=== PATIENT | male | born 1995 | race American Indian/Alaskan Native ===

== ENCOUNTER 2019-03-29 11:00 | Emergency (ER) | payer SELFPAY | END 2019-03-29 11:45 | disposition left against medical advice (07) | LOC: ED 11:00 | DX: Z00.8 Encounter for other general examination (principal); Z53.21 Procedure and treatment not carried out due to patient leaving prior to being seen by health care provider ==

== ENCOUNTER 2022-05-24 06:13 | Emergency (ER) | payer BC ==
--- NOTE | 2022-05-24 07:38 | XRay Report ---
LEFT RIB SERIES, 2 VIEWS INDICATION / CLINICAL INFORMATION: INJURY. Rib pain COMPARISON: None available. FINDINGS: Visualized left ribs are intact and without visible fracture. Both lungs are well-expanded and clear. Cardiac silhouette is normal size. No pneumothorax or hemotho rax. IMPRESSION: 1. No evidence of left rib fracture. 2. No acute pulmonary disease. Signer Name: Kiya Calloway MD Signed: 05/24/2022 7:33 AM Workstation Name: [email or web address]
--- NOTE | 2022-05-24 10:10 | Emergency Department Report ---
ED General Adult HPI - General Chief complaint: Pain General Stated complaint: RIB PAIN Time Seen by Provider: 05/24/22 09:31 Source: patient Mode of arrival: Ambulatory Limitations: No Limitations - History of Present Illness Initial comments: FALL TO LEFT SIDE FROM GROUND LEVEL AND NOTICED A SORE BUMP TO THE LEFT RIB REGION AND WANTED IT EVALUATED. NO HEMOPTYSIS. NO COUGH. NO SOB. NO DIZZINESS. -: Gradual Location: chest Radiation: non-radiation Quality: aching, dull Consistency: constant Worsens with: none Associated Symptoms: denies: cough, diaphoresis, malaise, nausea/vomiting Treatments Prior to Arrival: none - Related Data Allergies Allergy/AdvReac Type Severity Reaction Status Date / Time No Known Allergies Allergy Verified 03/29/19 11:03 ED Review of Systems ROS: Stated complaint: RIB PAIN Other details as noted in HPI Comment: All other systems reviewed and negative ED Past Medical Hx - Past Medical History Previous Medical History?: Yes - Surgical History Past Surgical History?: Yes - Social History Smoking Status: Unknown if ever smoked ED Physical Exam - General Limitations: No Limitations General appearance: alert, in no apparent distress - Head Head exam: Present: atraumatic, normocephalic - Eye Eye exam: Present: normal appearance, PERRL Pupils: Present: normal accommodation - ENT ENT exam: Present: normal exam, normal orophraynx, mucous membranes moist, TM's normal bilaterally - Neck Neck exam: Present: normal inspection - Respiratory Respiratory exam: Present: normal lung sounds bilaterally, chest wall tenderness (left chest wall). Absent: respiratory distress - Cardiovascular Cardiovascular Exam: Present: regular rate, normal rhythm. Absent: systolic murmur, diastolic murmur, rubs, gallop - GI/Abdominal GI/Abdominal exam: Present: soft, normal bowel sounds - Rectal Rectal exam: Present: deferred - Extremities Exam Extremities exam: Present: normal inspection, normal capillary refill - Back Exam Back exam: Present: normal inspection. Absent: CVA tenderness (R), CVA tenderness (L) - Neurological Exam Neurological exam: Present: alert, oriented X3, CN II-XII intact - Psychiatric Psychiatric exam: Present: normal affect, normal mood. Absent: flat affect, manic - Skin Skin exam: Present: warm, dry, intact, normal color. Absent: rash, diaphoretic, erythema, urticaria ED Course Vital Signs 05/24/22 06:18 Temperature 98.9 F Pulse Rate 91 H Respiratory 18 Rate Blood Pressure 126/56 O2 Sat by Pulse 97 Oximetry Critical care attestation.: If time is entered above; I have spent that time in minutes in the direct care of this critically ill patient, excluding procedure time. ED Disposition Clinical Impression: Contusion of rib on left side Disposition: HOME / SELF CARE / HOMELESS Is pt being admited?: No Does the pt Need Aspirin: No Condition: Stable Instructions: Contusion, [id number], How to Use Cold Therapy, Blunt Chest Trauma Referrals: [facility] [Provider Group] - 3-5 Days
[2022-05-24 10:19] VITALS: BP 116/64
== END 2022-05-24 10:14 | disposition home or self-care (01) ==
LOC: ED 06:13
DX: S20.212A Contusion of left front wall of thorax, initial encounter (principal); X58.XXXA Exposure to other specified factors, initial encounter; Y93.89 Activity, other specified; Y92.89 Other specified places as the place of occurrence of the external cause; Y99.8 Other external cause status
CPT/HCPCS: 99283